=== PATIENT | female | born 1985 | race Caucasian/White ===

== ENCOUNTER 2022-05-14 08:03 | Emergency (ER) | payer OTHER, SELFPAY ==
[2022-05-14 08:12] VITALS: BP 145/79; PULSE 75; RESP 16; TEMP 36.7; O2SAT 100; BMI 22.5
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
[2022-05-14 09:34] VITALS: PULSE 70; O2SAT 100
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
[2022-05-14 10:59] VITALS: BP 126/81; PULSE 62; O2SAT 100
== END 2022-05-14 11:39 | disposition home or self-care (01) ==
PROVIDERS: Emergency Provider Family Medicine
DX: M54.50 Low back pain, unspecified (principal); S13.4XXA Sprain of ligaments of cervical spine, initial encounter; V49.9XXA Car occupant (driver) (passenger) injured in unspecified traffic accident, initial encounter
CPT/HCPCS: 72040; 72100; 72141; 99284